=== PATIENT | female | born 1990 | race Caucasian/White ===

== ENCOUNTER 2018-08-18 08:44 | Inpatient (IN) | payer OTHER ==
[2018-08-18] MEDS ORDERED: CARBOPROST 250 MCG INJ IM (09:30)
[2018-08-18] MEDS ORDERED: METHYLERGONOVINE 0.2 MG INJ IM (09:30)
[2018-08-18] MEDS: OXYTOCIN 30 UNITS/LR 500 ML IVPB (09:30)
[2018-08-18] MEDS ORDERED: LIDOCAINE 1% (MPF) 30 ML INJ INJ (09:30)
[2018-08-18] MEDS ORDERED: MISOPROSTOL 200 MCG TAB PR (09:30)
[2018-08-18] MEDS ORDERED: OXYTOCIN 30 UNITS/LR 500 ML IV ×3 (09:30→10:30)
[2018-08-18] MEDS: LACTATED RINGER'S 1,000 ML IV* ×3 (10:08→23:55)
[2018-08-18 10:19] LABS: ADD MAN DIFF? NO
[2018-08-18 10:22] LABS: WHITE BLOOD COUNT 8.7 10^3/ul (4.8-10.8)
[2018-08-18 10:22] LABS: BASOPHILS % 0.5 % (0.0-2.0); EOSINOPHILS # 0.1 10^3/ul (0.0-0.5); HEMATOCRIT 33.4 % (37.0-47.0); HEMOGLOBIN 11.3 g/dl (12.0-16.0); LYMPHOCYTES # 2.3 10^3/ul (0.8-2.9); MEAN CORPUSCULAR HEMOGLOBIN 28.3 pg (29.0-33.0); MEAN CORPUSCULAR HGB CONC 33.8 g/dl (32.0-37.0); MEAN CORPUSCULAR VOLUME 83.7 fl (82.0-101.0); MEAN PLATELET VOLUME 10.4 fl (7.4-10.4); MONOCYTE # 0.6 10^3/ul (0.3-0.9); MONOCYTES % 7.3 % (0.0-11.0); NEUTROPHIL # 5.6 10^3/ul (1.6-7.5); NEUTROPHILS % 64.9 % (39.0-77.0); PLATELET COUNT 316 10^3/UL (140-415); RED BLOOD COUNT 3.99 10^6/ul (4.20-5.40); RED CELL DISTRIBUTION WIDTH 13.8 % (11.5-14.5)
[2018-08-18] MEDS: MINERAL OIL LIGHT 10 ML VIAL TOP (10:30)
[2018-08-18 10:35] LABS: ADD UMIC YES; UR AMORPHOUS CRYSTAL FEW /HPF (NONE SEEN); UR ASCORBIC ACID NEGATIVE (NEGATIVE); UR BACTERIA FEW /HPF (NONE SEEN); UR BILIRUBIN (Dip) NEGATIVE (NEGATIVE); UR BLOOD (Dip) NEGATIVE (NEGATIVE); UR CLARITY TURBID (CLEAR); UR COLOR AMBER (YELLOW); UR GLUCOSE (Dip) NEGATIVE (NEGATIVE); UR KETONES (Dip) NEGATIVE (NEGATIVE); UR LEUKOCYTE ESTERASE (Dip) TRACE Leu/ul (NEGATIVE); UR MUCUS FEW /HPF (NONE SEEN); UR NITRITE (Dip) NEGATIVE (NEGATIVE); UR RBC 1 /HPF (0-5); UR SPECIFIC GRAVITY (Dip) 1.018 (1.003-1.030); UR SQUAMOUS EPITHELIAL CELL FEW /HPF (FEW); UR TOTAL PROTEIN (Dip) NEGATIVE (NEGATIVE); UR UROBILINOGEN (Dip) 1+ mg/dL (NEGATIVE); UR WBC 9 /HPF (0-5)
[2018-08-18 10:39] LABS: PROTIME 12.2 Sec (11.9-14.9)
[2018-08-18 10:40] LABS: PARTIAL THROMBOPLASTIN TIME 23.7 Sec (23.0-35.0)
[2018-08-18] MEDS: CLINDAMYCIN 900 MG/D5W (PMX) 50 ML IV ×2 (10:45→18:48)
[2018-08-18] MEDS: OXYTOCIN 30 UNITS/LR 500 ML IV (11:00)
[2018-08-18] MEDS: LACTATED RINGER'S 1,000 ML IV (15:13)
[2018-08-18] MEDS ORDERED: DIPHENHYDRAMINE 50 MG INJ IV (15:30)
[2018-08-18] MEDS ORDERED: HYDROmorphONE 0.5 MG/0.5 ML SYG IV ×2 (15:30)
[2018-08-18] MEDS ORDERED: ONDANSETRON 4 MG INJ IV (15:30)
[2018-08-18] MEDS ORDERED: NALOXONE (0.4 MG/ML) INJ IV (15:30)
[2018-08-18] MEDS ORDERED: KETOROLAC 30 MG INJ IV (15:30)
[2018-08-18] MEDS: FENTAnyl 2MCG/ML-ROPIV 0.2% 100 ML BAG EPI ×2 (19:13→22:29)
[2018-08-18 20:17] LABS: RAPID PLASMA REAGIN NONREACTIVE (NR)
[2018-08-18] MEDS ORDERED: IBUPROFEN 600 MG TAB GTB (22:00)
[2018-08-19] MEDS: CLINDAMYCIN 900 MG/D5W (PMX) 50 ML IVPB ×2 (03:00→10:46)
[2018-08-19] MEDS: FENTAnyl 2MCG/ML-ROPIV 0.2% 100 ML BAG EPI ×2 (05:05→11:35)
[2018-08-19] MEDS: LACTATED RINGER'S 1,000 ML IV* ×3 (07:50→23:02)
[2018-08-19] MEDS: LIDOCAINE 0.5% (SDV) 50 ML INJ INJ (08:00)
[2018-08-19] MEDS: MINERAL OIL LIGHT 10 ML VIAL TOP (08:00)
[2018-08-19] MEDS: OXYTOCIN 30 UNITS/LR 500 ML IV (13:15)
[2018-08-19] MEDS: IBUPROFEN 600 MG TAB PO ×2 (15:18→23:37)
[2018-08-19] MEDS ORDERED: MISOPROSTOL 200 MCG TAB PR (15:30)
[2018-08-19] MEDS ORDERED: METHYLERGONOVINE 0.2 MG INJ IM (15:30)
[2018-08-19] MEDS ORDERED: CARBOPROST 250 MCG INJ IM (15:30)
[2018-08-19] MEDS ORDERED: ZOLPIDEM 5 MG TAB PO (15:30)
[2018-08-19] MEDS: MAGNESIUM HYDROXIDE 30ML CUP PO (21:43)
[2018-08-19] MEDS: NITROFURANTOIN (SR) 100 MG CAP PO (21:43)
[2018-08-19] MEDS: SENNA/DOCUSATE NA (8.6MG/50MG) TAB PO (21:43)
[2018-08-19] MEDS ORDERED: IBUPROFEN 600 MG TAB PO (22:00)
[2018-08-20] MEDS: IBUPROFEN 600 MG TAB PO ×4 (05:37→23:23)
[2018-08-20] MEDS: LACTATED RINGER'S 1,000 ML IV* ×3 (07:02→23:02)
[2018-08-20 07:50] LABS: ADD MAN DIFF? NO
[2018-08-20 07:52] LABS: BASOPHIL # 0.1 10^3/ul (0.0-0.1); BASOPHILS % 0.5 % (0.0-2.0); EOSINOPHILS # 0.3 10^3/ul (0.0-0.5); EOSINOPHILS % 2.1 % (0.0-7.0); HEMATOCRIT 26.6 % (37.0-47.0); HEMOGLOBIN 8.9 g/dl (12.0-16.0); LYMPHOCYTES # 3.3 10^3/ul (0.8-2.9); LYMPHOCYTES % 20.7 % (15.0-51.0); MEAN CORPUSCULAR HEMOGLOBIN 28.7 pg (29.0-33.0); MEAN CORPUSCULAR HGB CONC 33.5 g/dl (32.0-37.0); MEAN CORPUSCULAR VOLUME 85.8 fl (82.0-101.0); MEAN PLATELET VOLUME 10.4 fl (7.4-10.4); MONOCYTE # 1.2 10^3/ul (0.3-0.9); MONOCYTES % 7.3 % (0.0-11.0); NEUTROPHIL # 10.9 10^3/ul (1.6-7.5); NEUTROPHILS % 68.5 % (39.0-77.0); PLATELET COUNT 211 10^3/UL (140-415); RED CELL DISTRIBUTION WIDTH 14.5 % (11.5-14.5)
[2018-08-20 07:52] LABS: WHITE BLOOD COUNT 15.8 10^3/ul (4.8-10.8)
[2018-08-20] MEDS: MAGNESIUM HYDROXIDE 30ML CUP PO ×2 (09:00→21:00)
[2018-08-20] MEDS: SENNA/DOCUSATE NA (8.6MG/50MG) TAB PO ×2 (09:00→21:00)
[2018-08-20] MEDS: NITROFURANTOIN (SR) 100 MG CAP PO ×2 (09:14→20:49)
[2018-08-21] MEDS: IBUPROFEN 600 MG TAB PO ×2 (05:19→11:23)
[2018-08-21] MEDS: LACTATED RINGER'S 1,000 ML IV* (07:02)
[2018-08-21 07:52] LABS: ADD MAN DIFF? NO
[2018-08-21 08:03] LABS: WHITE BLOOD COUNT 10.9 10^3/ul (4.8-10.8)
[2018-08-21 08:04] LABS: BASOPHIL # 0.1 10^3/ul (0.0-0.1); BASOPHILS % 0.8 % (0.0-2.0); EOSINOPHILS # 0.3 10^3/ul (0.0-0.5); EOSINOPHILS % 3.1 % (0.0-7.0); HEMATOCRIT 26.9 % (37.0-47.0); HEMOGLOBIN 8.8 g/dl (12.0-16.0); LYMPHOCYTES # 3.7 10^3/ul (0.8-2.9); LYMPHOCYTES % 34.1 % (15.0-51.0); MEAN CORPUSCULAR HEMOGLOBIN 28.2 pg (29.0-33.0); MEAN CORPUSCULAR HGB CONC 32.7 g/dl (32.0-37.0); MEAN CORPUSCULAR VOLUME 86.2 fl (82.0-101.0); MEAN PLATELET VOLUME 10.6 fl (7.4-10.4); MONOCYTE # 0.8 10^3/ul (0.3-0.9); MONOCYTES % 7.2 % (0.0-11.0); NEUTROPHIL # 5.9 10^3/ul (1.6-7.5); NEUTROPHILS % 54.2 % (39.0-77.0); PLATELET COUNT 237 10^3/UL (140-415); RED BLOOD COUNT 3.12 10^6/ul (4.20-5.40); RED CELL DISTRIBUTION WIDTH 14.5 % (11.5-14.5)
[2018-08-21] MEDS: SENNA/DOCUSATE NA (8.6MG/50MG) TAB PO (09:00)
[2018-08-21] MEDS: MAGNESIUM HYDROXIDE 30ML CUP PO (09:00)
[2018-08-21] MEDS: MEASLES,MUMPS,RUBELLA VACCINE INJ SC* (09:00)
[2018-08-21] MEDS: DIPHTH/TET/ACEL PERTUSS (ADULT) 0.5 ML VIAL IM* (09:00)
[2018-08-21] MEDS: VARICELLA VACCINE LIVE/PF 1,350 UNIT/0.5 ML ML SC* (09:00)
[2018-08-21] MEDS: NITROFURANTOIN (SR) 100 MG CAP PO (09:12)
[2018-08-21] MEDS: INFLUENZA VIRUS VACCINE 0.5 ML (DISPENSING) IM* (11:22)
== END 2018-08-21 13:45 | disposition home or self-care (01) | DRG 807 ==
LOC: L-D 08:44 → PP1 08-19 15:38
PROVIDERS: Obstetrics & Gynecology
PROC: 4A1HXCZ Monitoring of Products of Conception, Cardiac Rate, External Approach (ICD-10-PCS; 2018-08-18 08:30)
PROC: 3E0P7GC Introduction of Other Therapeutic Substance into Female Reproductive, Via Natural or Artificial Opening (ICD-10-PCS; 2018-08-18 08:30)
DX: O48.0 Post-term pregnancy (principal); Z37.0 Single live birth; Z3A.40 40 weeks gestation of pregnancy; O70.0 First degree perineal laceration during delivery; O69.81X0 Labor and delivery complicated by cord around neck, without compression, not applicable or unspecified; Z23 Encounter for immunization
CPT/HCPCS: 62319; 76816; 81001; 85025; 85610; 85730; 86592; 86850; 86900; 86901; 87086; 90686; 90715; 90716; 99464

== ENCOUNTER 2019-02-05 08:06 | Emergency (ER) | payer OTHER | END 2019-02-05 08:49 | disposition home or self-care (01) | LOC: FTE 08:06 | DX: J06.9 Acute upper respiratory infection, unspecified (principal) | CPT/HCPCS: 99283; Z7502 ==